=== PATIENT | female | born 1960 | race Two or more races ===

== ENCOUNTER 2020-04-27 11:34 | Emergency (ER) | payer OTHER ==
[~2020-04-27] VITALS: Ht 154.9 cm; Wt 62.1 kg
[~2020-04-27 11:34] MED LIST: AMBIEN10 MG; EFFEXOR XR150 MG; LYRICA150 MG; MS CONTIN30 M1; PERCOCET 10-3251 TAB; TIZANIDINE HCL4 M1; TRILEPTAL150 MG; ZOCOR5 MG
== END 2020-04-27 14:04 | disposition home or self-care (01) ==
LOC: ER 11:34
DX: G89.11 Acute pain due to trauma (principal); G44.319 Acute post-traumatic headache, not intractable; M54.2 Cervicalgia; M54.6 Pain in thoracic spine; M54.5 Low back pain

== ENCOUNTER 2020-12-19 14:09 | Emergency (ER) | payer OTHER ==
[~2020-12-19] VITALS: Ht 154.9 cm; Wt 65.3 kg
[2020-12-19] MEDS ORDERED: CELEXA10 MG PO (14:40)
[2020-12-19] MEDS ORDERED: AMBIEN5 MG PO (14:41)
[2020-12-19] MEDS ORDERED: TRILEPTAL150 MG PO (14:41)
[2020-12-19] MEDS ORDERED: CLONAZEPAM0.125 MG PO (14:41)
[2020-12-19] MEDS ORDERED: ZYRTEC10 M3 PO (14:42)
[2020-12-19] MEDS ORDERED: BENADRYL25 MG PO (14:42)
[2020-12-19] MEDS ORDERED: SINGULAIR10 MG PO (14:42)
[2020-12-19] MEDS ORDERED: BENTYL10 MG/1 ML IM (14:42)
== END 2020-12-19 17:00 | disposition home or self-care (01) ==
LOC: ER 14:09
DX: M75.52 Bursitis of left shoulder (principal); M25.512 Pain in left shoulder

== ENCOUNTER 2021-02-05 08:00 | Outpatient (CLI) | payer OTHER ==
[~2021-02-05 08:00] MED LIST changes: +AMBIEN5 MG PO; +BENADRYL25 MG PO; +BENTYL10 MG/1 ML IM; +CELEXA10 MG PO; +CLONAZEPAM0.125 MG PO; +SINGULAIR10 MG PO; +TRILEPTAL150 MG PO; +ZYRTEC10 M3 PO
== END 2021-02-05 08:30 | disposition home or self-care (01) ==
LOC: PPH VACUNA 08:00
PROVIDERS: ATTEND Emergency Medicine Pediatric Emergency Medicine
DX: Z23 Encounter for immunization (principal)

== ENCOUNTER 2021-03-05 14:30 | Outpatient (CLI) | payer OTHER | END 2021-03-05 14:45 | disposition home or self-care (01) | LOC: PPH VACUNA 14:30 | PROVIDERS: ATTEND Emergency Medicine Pediatric Emergency Medicine | DX: Z23 Encounter for immunization (principal) ==

== ENCOUNTER 2022-06-05 13:22 | Emergency (ER) | payer OTHER ==
[~2022-06-05] VITALS: Ht 152.4 cm; Wt 72.6 kg
[2022-06-05] MEDS ORDERED: SYMBICORT 80/10.2 GM IH (15:16)
[2022-06-05] MEDS ORDERED: PROVENTIL HFA6.7 GM IH (15:16)
== END 2022-06-05 17:16 | disposition home or self-care (01) ==
LOC: ER 13:22
DX: J45.909 Unspecified asthma, uncomplicated (principal); Z91.041 Radiographic dye allergy status

== ENCOUNTER 2022-08-03 00:03 | Emergency (ER) | payer OTHER ==
[~2022-08-03] VITALS: Ht 154.9 cm; Wt 63.5 kg
[~2022-08-03 00:03] MED LIST changes: +PROVENTIL HFA6.7 GM IH; +SYMBICORT 80/10.2 GM IH
== END 2022-08-03 18:36 | disposition designated cancer center or children's hospital (05) ==
LOC: ER 00:03
DX: F31.60 Bipolar disorder, current episode mixed, unspecified (principal); J45.909 Unspecified asthma, uncomplicated; M79.7 Fibromyalgia; M06.30 Rheumatoid nodule, unspecified site; T42.4X5A Adverse effect of benzodiazepines, initial encounter; Y92.230 Patient room in hospital as the place of occurrence of the external cause; Z20.822 Contact with and (suspected) exposure to COVID-19; Z91.041 Radiographic dye allergy status

== ENCOUNTER 2022-12-01 15:26 | Emergency (ER) | payer OTHER ==
[~2022-12-01] VITALS: Ht 154.9 cm; Wt 61.2 kg
[2022-12-01] MEDS ORDERED: TIZANIDINE HCL4 MG PO (16:00)
[2022-12-01] MEDS ORDERED: MEDROLPACK PO (20:30)
== END 2022-12-01 20:35 | disposition home or self-care (01) ==
LOC: ER 15:26
DX: M62.838 Other muscle spasm (principal); R31.9 Hematuria, unspecified; R30.0 Dysuria; Z88.0 Allergy status to penicillin; Z88.2 Allergy status to sulfonamides; Z91.041 Radiographic dye allergy status; Z88.6 Allergy status to analgesic agent; M79.7 Fibromyalgia; M06.8A Other specified rheumatoid arthritis, other specified site

== ENCOUNTER 2023-01-02 08:27 | Emergency (ER) | payer OTHER ==
[~2023-01-02] VITALS: Ht 152.4 cm; Wt 61.7 kg
[~2023-01-02 08:27] MED LIST changes: +MEDROLPACK PO; +TIZANIDINE HCL4 MG PO
== END 2023-01-02 11:30 | disposition home or self-care (01) ==
LOC: ER 08:27
DX: S01.82XA Laceration with foreign body of other part of head, initial encounter (principal); W18.39XA Other fall on same level, initial encounter; Y93.89 Activity, other specified; Y92.010 Kitchen of single-family (private) house as the place of occurrence of the external cause; J45.909 Unspecified asthma, uncomplicated; F32.89 Other specified depressive episodes; Z88.2 Allergy status to sulfonamides; Z91.013 Allergy to seafood; Z91.041 Radiographic dye allergy status; Z88.6 Allergy status to analgesic agent; M50.322 Other cervical disc degeneration at C5-C6 level

== ENCOUNTER 2023-01-06 07:43 | Emergency (ER) | payer OTHER ==
[~2023-01-06] VITALS: Ht 160 cm; Wt 61.2 kg
== END 2023-01-06 18:44 | disposition left against medical advice (07) ==
LOC: ER 07:43
DX: S09.93XA Unspecified injury of face, initial encounter (principal); W18.39XA Other fall on same level, initial encounter; Y93.89 Activity, other specified; Y92.9 Unspecified place or not applicable; Z88.0 Allergy status to penicillin; Z88.2 Allergy status to sulfonamides; Z91.013 Allergy to seafood; Z91.041 Radiographic dye allergy status; J45.909 Unspecified asthma, uncomplicated; F32.89 Other specified depressive episodes; M50.321 Other cervical disc degeneration at C4-C5 level
CPT/HCPCS: 36415; 70450; 71110; 72125; 93005; 96372; 99284; J3490

== ENCOUNTER 2024-08-05 11:50 | Emergency (ER) | payer OTHER ==
[~2024-08-05] VITALS: Ht 154.9 cm; Wt 68.0 kg
[2024-08-05] MEDS ORDERED: ORPHENADRINE CITRATE 30 MG/ML AMPUL IM STA (13:14)
[2024-08-05] MEDS ORDERED: ACETAMINOPHEN 500 MG GEL..CAP PO STA (13:15)
[2024-08-05] MEDS ORDERED: MEDROLPACK PO (16:41)
[2024-08-05] MEDS ORDERED: TYLENOL ARTHRI650 MG PO (16:41)
[2024-08-05] MEDS ORDERED: METAXALONE800 MG PO (16:41)
== END 2024-08-05 16:44 | disposition home or self-care (01) ==
LOC: ER 11:53
DX: S39.012A Strain of muscle, fascia and tendon of lower back, initial encounter (principal); Z91.041 Radiographic dye allergy status; Z88.6 Allergy status to analgesic agent; Z91.013 Allergy to seafood; Z88.0 Allergy status to penicillin
CPT/HCPCS: 72100; 96372; 99283; J2360